=== PATIENT | male | born 1985 | race African-American/Black ===

== ENCOUNTER 2020-09-22 05:45 | Emergency (ER) | payer SELFPAY ==
[2020-09-22] MEDS ORDERED: NAPROSYN500 MG PO (06:29)
[2020-09-22] MEDS ORDERED: ULTRAM50 MG PO (06:29)
== END 2020-09-22 06:48 | disposition home or self-care (01) ==
LOC: D.ER 05:45
DX: S86.911A Strain of unspecified muscle(s) and tendon(s) at lower leg level, right leg, initial encounter (principal); M79.661 Pain in right lower leg; X50.0XXA Overexertion from strenuous movement or load, initial encounter; Y93.9 Activity, unspecified; Y92.9 Unspecified place or not applicable